=== PATIENT | female | born 1990 | race Caucasian/White ===

== ENCOUNTER 2021-12-24 12:25 | Day surgery (SDC) | payer MEDICAID ==
[2021-12-18 14:57] LABS: BASOPHILS % (AUTO) 0.4 % (0-1); EOSINOPHILS # (AUTO) 0.1 X10'3 (0-0.9); EOSINOPHILS % (AUTO) 0.9 % (0-6); LYMPHOCYTES % (AUTO) 26.3 % (21-51); MEAN CORPUSCULAR HEMOGLOBIN 27.3 PG (27.0-31.0); MEAN CORPUSCULAR HGB CONC 33.4 g/dL (33.0-36.5); MEAN CORPUSCULAR VOLUME 81.5 FL (78-98); MEAN PLATELET VOLUME 7.3 FL (7.4-10.4); MONOCYTES # (AUTO) 0.6 X10'3 (0-0.9); MONOCYTES % (AUTO) 7.7 % (2-12); NEUTROPHILS # (AUTO) 4.8 X10'3 (1.8-7.7); NEUTROPHILS % (AUTO) 64.7 % (42-75); PRE OP HEMATOCRIT 37.4 % (35.0-45.0); PRE OP HEMOGLOBIN 12.5 g/dL (12.0-16.0); PRE OP PLATELET COUNT 311 X10'3 (140-440); RED BLOOD COUNT 4.59 X10'6 (4.20-5.60); RED CELL DISTRIBUTION WIDTH 15.1 % (11.5-14.5)
[2021-12-18 15:03] LABS: CLARITY,URINE CLEAR (Clear); COLOR,URINE YELLOW (Yellow); GLUCOSE, URINE NEGATIVE (Neg); KETONES,URINE NEGATIVE (Neg); LEUKOCYTE ESTERASE ,URINE NEGATIVE (Neg); NITRITES, URINE NEGATIVE (Neg); OCCULT BLOOD,URINE NEGATIVE (Neg); PH,URINE 5.5 (4.8-8.0); PROTEIN,URINE NEGATIVE (Neg); UROBILINOGEN,URINE 0.2 E.U/dL (0.2-1.0)
[2021-12-18 15:06] LABS: ALBUMIN 3.7 G/DL (3.4-5.0); ALBUMIN/GLOBULIN RATIO 0.8 (1.1-1.5); ALKALINE PHOSPHATASE 139 IU/L (46-116); BLOOD UREA NITROGEN 23 MG/DL (7-18); BUN/CREATININE RATIO 28.4 (6.6-38.0); CALCIUM 8.7 MG/DL (8.5-10.1); CHLORIDE 104 MMOL/L (99-107); CREATININE 0.81 MG/DL (0.40-0.90); PRE OP ALT 25 U/L (30-65); PRE OP ANION GAP 9 (8-16); PRE OP AST 17 U/L (10-37); PRE OP BILIRUB, TOTAL 0.2 MG/DL (0.0-1.0); PRE OP GLUCOSE 74 MG/DL (70-104); PRE OP POTASSIUM 4.4 MMOL/L (3.4-5.1); PRE OP SODIUM 140 MMOL/L (135-145); TOTAL CARBON DIOXIDE 27.1 MMOL/L (24-32); TOTAL PROTEIN 8.3 G/DL (6.4-8.2); UA COLLECTION TYPE NON-SPECIFIED; eGFR 84 ML/MIN
[2021-12-18 15:18] LABS: HCG SERUM QL NEGATIVE
[2021-12-24] VITALS (8 sets, daily range): BP systolic 106–124; BP diastolic 66–86
[~2021-12-24] VITALS: Ht 154.9 cm; Wt 64.0 kg
[~2021-12-24 12:25] MED LIST: NO HOME MEDS; ceFOXitin 2GM-NS 100mL ADDvant 100 ML IV ONE; famotidine 20mg tablet PO ONE; ringers solution, lacted 1,000 ML IV SCH
--- NOTE | 2021-12-24 12:35 | NUR ---
PT PREPPED FOR SURGERY, IV STARTED WITHOUT DIFFICULTY, NPO STATUS VERIFIED.
[2021-12-24] MEDS ORDERED: BUPIVAcaine/PF 7.5mg/ml (0.75%) 10ml vial ONE (13:20)
[2021-12-24] MEDS ORDERED: ringers solution, lacted 1,000 ML IV SCH (13:25)
[2021-12-24] MEDS ORDERED: hydrALAZINE 20mg/ml inj. IV PRN (13:25)
[2021-12-24] MEDS ORDERED: labetalol 20mg/4ml (5mg/ml) syringe IV PRN (13:25)
[2021-12-24] MEDS ORDERED: fentaNYL/PF 50MCG/1 ML 2ML syringe IV PRN ×2 (13:25)
[2021-12-24] MEDS ORDERED: ondansetron/PF 4mg/2ml inj IV PRN (13:25)
[2021-12-24] MEDS ORDERED: morphine 4 MG/ML inj SYRINge IV PRN (13:25)
[2021-12-24] MEDS ORDERED: morphine 2 MG/ML inj. syringe IV PRN (13:25)
[2021-12-24] MEDS ORDERED: neostigmine methylsulfate 1 MG/ML 10ml vial ONE (13:27)
[2021-12-24] MEDS ORDERED: LIDOcaine 1% (10mg/ml)w/preservative inj. 20ml MDV ONE (13:27)
[2021-12-24] MEDS ORDERED: desflurane 240ml liquid inh. IH ONE (13:27)
[2021-12-24] MEDS ORDERED: glycopyrrolate 0.2mg/ml inj ONE (13:27)
[2021-12-24] MEDS ORDERED: midazolam 1 mg/ML 2ml injection ONE (13:37)
[2021-12-24] MEDS ORDERED: fentaNYL/PF 50MCG/1 ML 2ML syringe ONE (13:37)
[2021-12-24] MEDS ORDERED: ondansetron/PF 4mg/2ml inj ONE (13:45)
[2021-12-24] MEDS ORDERED: dexamethasone sod phosphate 4mg/ml inj. ONE (13:45)
[2021-12-24] MEDS ORDERED: propofol inj 20 ML IV ONE (13:45)
[2021-12-24] MEDS ORDERED: rocuronium 10mg/ml inj IV ONE (13:46)
--- NOTE | 2021-12-24 14:20 | NUR ---
Received from OR via , accompanied by Anesthesiologist DR YOU and report given by Anesthesiolgist. AWAKENS TO VOICE. VITALS STABLE. DRESSING DI. DAVID PAIN.
--- NOTE | 2021-12-24 15:20 | NUR ---
AWAKE AND ORIENTED. VITALS STABLE. DRESSINGS DI. DAVID PAIN. HOME WITH HER SPOUSE AT THIS TIME.
== END 2021-12-24 15:20 | disposition home or self-care (01) ==
LOC: PRE-OP 12:25
PROVIDERS: ATTEND Obstetrics & Gynecology Obstetrics
DX: Z30.2 Encounter for sterilization (principal); F17.210 Nicotine dependence, cigarettes, uncomplicated; Z98.890 Other specified postprocedural states; Z79.899 Other long term (current) drug therapy
CPT/HCPCS: 36415; 58671; 80053; 81003; 82948; 84703; 85025; 86885; 86900; 86901; A4264; J0694; J1100; J2250; J2405; J2704; J2710; J3010; J3490; J7030; J7120; Z7506; Z7512; A4618; A7000

== ENCOUNTER 2023-10-30 07:07 | Emergency (ER) | payer MEDICAID ==
[~2023-10-30] VITALS: Ht 152.4 cm; Wt 62.8 kg
[~2023-10-30 07:07] MED LIST changes: -ceFOXitin 2GM-NS 100mL ADDvant 100 ML IV ONE; -famotidine 20mg tablet PO ONE; -ringers solution, lacted 1,000 ML IV SCH
[2023-10-30 07:17] VITALS: BP 135/102; PULSE 99; RESP 20; TEMP 97.4; O2SAT 96
[2023-10-30] MEDS ORDERED: TRIFLURIDINE 1% OP (08:30)
[2023-10-30] MEDS ORDERED: [UNRECOGNIZED DRUG - OTHER] (08:30)
[2023-10-30] MEDS ORDERED: SULF1TAB45 PO (08:31)
[2023-10-30] MEDS ORDERED: TRIF7.5D5 RIGHTEYE (08:51)
== END 2023-10-30 08:59 | disposition home or self-care (01) ==
LOC: ER 07:07
DX: H10.9 Unspecified conjunctivitis (principal); J02.9 Acute pharyngitis, unspecified; Z79.899 Other long term (current) drug therapy
CPT/HCPCS: 99283